=== PATIENT | male | born 1950 | race Caucasian/White ===

== ENCOUNTER 2023-12-30 10:00 | Outpatient (RCR) | payer MEDICARE, SELFPAY ==
--- NOTE | 2023-12-09 07:02 | HP.OTEVAL_ITS ---
Patient's Visit Information Visit Information Visit Information: NICO CARLSON is a 73 year old M, referred to Occupational Therapy by Dr. Mauro Cao MD, with a diagnosis of right MF & RF tendon glides. Date of Evaluation: 12/08/23 Occupational Therapist: Rosalind Durbin, ARTI/Richardson, CHT Subjective Subjective: This 73 year old male was seen for OT eval with dx of other orthopedic aftercare following right MF and RF trigger finger release- pt states he has had injections starting about 2 years ago. Pt states sx 11/25/23 pt under went right MF and RF trigger finger release. Stiches were removed on 12/01/23- pt struggling with swelling limited ROM and use of right UE. pt is right handed. pt states about last /thu. he woke up in AM and his right shoulder pain and this is limiting his use of his right hand. pt states prior to sx he was performing all ADLs and IADLs at IND level. Pain right hand: Current Pain Intensity: 2 Pain Intensity Range: 3 ROM Wrist: right 30/15 left 65/50 PIP: right RF -40/ 40 left 0/110 RF -50/ 60 left 0/100 ROM Comments: pt demo limited ability to form a composite fist by 2.5 Strength Data Processing Mechanic: right NT left 55# Lateral Pinch: right NT left 12# Tripod Pinch: right NT left 14# Strength Comments: will test right wireless manager strength a later date Edema PIP: right IF 9.5 left 8.0 Other: right MCP 22.5cm left 21cm Sensation Sensation Comments: denies Quick DASH-Disab of Arm,Shoulder& Hand Quick DASH Score: 77.2725 Goals Goal:100% adherence to protocol: Yes Comment: Trigger finger guidelines Goal:Daily scar massage when approriate: Yes Goal:ROM equal to unaffected hand: Yes Goal:Data Processing Mechanic/Pinch strength at least 75% of unaffected hand: Yes Goal:No pain with affected hand use: Yes Goal:PIP Circumferences equal to unaffected hand: Yes Goal:Full use of affected hand in daily activities including work: Yes Rehabilitation General Assessment: pt demo with right hand swelling, limited wrist and digit ROM decreasing pts ind. with ADLs and IADLS. Pt would benefit from skilled OT services 2x week for 4 weeks to return pt to his PLOF. Today therapist ed. pt on tendon glide, edema mtg and his POC. pt demo understanding and agrees to POC. Rehabilitation Potential: Good Anticipated Interventions Anticipated Interventions: A/AAROM/PROM, Strengthening, Edema Control, Scar Care, Triggerpoint Release, Desensitization, Sensory Retraining, Modalities, Orthoses, Joint Protection/Energy Conservation, Ergonomic Education, Education re assistive Equipment, Education re Diagnosis and Home Program Visit Plan Frequency: 2-3x /Week Duration: 4-6 Weeks TEXT: Thank you for the opportunity to evaluate your patient. For Medicare and Medicare HMO plans, please review the plan of care and approve it. It will need to be FAXED BACK to us at [phone] for Medicare purposes. Please let me know if there are questions or concerns regarding this plan of care. Physician Signature: Date:
--- NOTE | 2023-12-31 07:36 | OTREVAL_ITS ---
Re-Evaluation Intro: Dr. Mauro Cao MD, It has been my pleasure to treat NICO CARLSON over the last 7 visits for right MF & RF tendon glides. Please see the progress note below for an update on the occupational therapy plan of care! Subjective Subjective: Pt arrived early; states he is doing ok; not having any pain. Pt has appt and would like print out of progress to take with him. Objective Objective/Function: wrist ROM 40/40 MF continues to demo a decrease in ROM limiting full composite fist- Due to a right shoulder impingement shortly after his sx and prior to his therapy pt was limited with progression of his rehab. pt is cont. with AROM, scar mtg and now that he is demo a increase in functional ROM we can increase pt to PRE. Will keep with hand/ forearm as shoulder is still limited. Pt is performing his own Ex. with his shoulder. pt would benefit from further OT services 2x week for next 3-4 weeks to increase strength to return pt to a PLOF. Plan Plan Frequency: 2-3x /Week Duration: 4-6 Weeks Visits in this POC: (No limit on Med Nikky) 4-6 weeks (2-3x week) Plan: if pts shoulder impingement- symptoms/ is mtg. his shoulder IND. but this has affected pts use of Right hand. will imitate light PRE grip assembler for trigger fingers /wrist and forearm to pts limits Goals Goals Patient Goals: Regain Mobility, Regain Strength, Decrease Pain and Use Hand/Wrist/Arm Normally Again Goal:100% adherence to protocol: Yes Goal:Daily scar massage when approriate: Yes Goal:ROM equal to unaffected hand: Yes Goal:Biometric Screener/Pinch strength at least 75% of unaffected hand: Yes Goal:No pain with affected hand use: Yes Goal:PIP Circumferences equal to unaffected hand: Yes Goal:Full use of affected hand in daily activities including work: Yes Anticipated Interventions Anticipated Interventions Anticipated Interventions: A/AAROM/PROM, Strengthening, Edema Control, Scar Care, Triggerpoint Release, Desensitization, Sensory Retraining, Modalities, Orthoses, Joint Protection/Energy Conservation, Ergonomic Education, Education re assistive Equipment, Education re Diagnosis and Home Program Re-Evaluation Ending Re-evaluation ending: Please do not hesitate to contact me at [phone] by phone or if you have questions or concerns regarding this new plan of care! Sincerely, Rosalind Durbin, OTR/L, CHT
--- NOTE | 2024-05-20 08:51 | HP.OTDCNRP_ITS ---
Patient Information Patient Information: NICO CARLSON was seen in my office for initial evaluation on 12/08/23. The following Plan of Care was established for this patient: POC Established Initial Frequency: 2-3x /Week Initial Duration: 4-6 Weeks Plan: if pts shoulder impingement- symptoms/ is mtg. his shoulder IND. but this has affected pts use of Right hand. will imitate light PRE environmental quality analyst for trigger fingers /wrist and forearm to pts limits Anticipated Interventions Anticipated Interventions: A/AAROM/PROM, Strengthening, Edema Control, Scar Care, Triggerpoint Release, Desensitization, Sensory Retraining, Modalities, Orthoses, Joint Protection/Energy Conservation, Ergonomic Education, Education re assistive Equipment, Education re Diagnosis and Home Program Last Seen Last Seen: This patient was last seen in our office 12/30/23. Pertinent comments regarding their Occupational therapy will appear below: pt was seen for OT, last seen on 12/30/23. Pt has not scheduled further apts and due to time lapse in services pt is d/c at this time. At this point I will be discontinuing this patient from occupational therapy. I would be happy to see this patient again in the future if found appropriate by the physician. Thank you! Rosalind Durbin, OTR/L, CHT
== END 2023-12-30 19:00 | disposition home or self-care (01) ==
LOC: OT 10:00
PROVIDERS: PCP Preventive Medicine Occupational Medicine; Referring Provider Orthopaedic Surgery Hand Surgery; Visit Provider Orthopaedic Surgery Hand Surgery
DX: Z47.89 Encounter for other orthopedic aftercare (principal)
CPT/HCPCS: 97035; 97110; 97140; 97166; 97530

== ENCOUNTER 2024-12-26 11:30 | Outpatient (RCR) | payer MEDICARE, SELFPAY ==
--- NOTE | 2024-11-15 15:57 | HP.PTEVAL ---
Patient's Visit Information Visit Information Visit Information: NICO CARLSON is a 74 year old M referred to Physical Therapy by ONEAL HUBBARD with a diagnosis of CERVICAL RADICULOPATHY. Date of Evaluation: 11/15/24 Physical Therapist: Ania Joshi PT, Cert MDT Visit Plan Frequency: 2-3x /Week Duration: 4-6 Weeks Plan: NO NECK MANUAL THERAPY. POSTURE CORRECTION/STRENGTHENING. NECK AND SCAPULAR STABILIZATION AND STRENGTHENING. NECK ROM. TAYLOR UE ROM, STRETCHING AND STRENGTHENING WITH L UE MANUAL INTERVENTIONS NEEDED FOR STRETCHING, PROPER MUSCLE ACTIVATION AND TO AVOID COMPENSATORY MVMTS. HEP INSTRUCTION. HOME ELECTRICAL STIMULATION UNIT INSTRUCTION NEEDED. DRY NEEDLING. Subjective Subjective: Work/Leisure: RETIRED. [employer] AND [employer]. DISABILITIES SERVICES OFFICER FOR 30 YEARS. Present symptoms: LACK OF ROM AND REAL ESTATE VALUER STRENGTH IN L ARM AND HAND. Present since: 07/23/24 Getting Better, Getting Worse or Staying the Same: STAYING THE SAME Pain Scale: N/A Commenced as a result of: NO APPARENT REASON/SOMETHING IN THE NIGHT. Symptoms at onset: NO USE OF THE WHOLE L ARM AND HAND. SWELLING AND HYPERSENSATIVITY OF DISTAL L FOREARM TO HAND X 2 WEEKS THEN IT STARTED RESOLVING ITSELF. OTHER PAST EPISODES USUALLY RESOLVE WITHIN ANOTHER 2 WEEKS BUT THIS ONE HASN'T. Worse: NOTHING Better: NOTHING Disturbed sleep: NO Previous history/Previous treatment: H/O AT LEAST 3 EPISODES IN EA ARM OVER THE LAST 5 TO 6 YEARS. RESOLVE ON THEIR OWN. HEAT AND COLD DO NOT HELP. MORE ACTIVE UNTIL MARCH OF 2024. TREATED BY DR. BHARDWAJ IN PAST AND CURRENT. DR. CHAPPELL PCP AUG 2024. This episode: THIS EPISODE HASN'T RESOLVED ITSELF LIKE THE OTHERS HAVE IN THE PAST. Dizziness: NO Tinnitus: NO Nausea: NO Shortness of Breath: NO Difficulty Swallowing: NO Gait: NORMAL FOR PATIENT - DENIES FALLS - NO AD'S. Accidents: NO Unexplained weight loss: NO Imaging: EMG LAST THURSDAY - ABNORMAL BUT PATIENT HAS NOT BEEN TOLD DX. CERVICAL AND THORACIC MRI'S NORMAL PER PATIENT REPORT. R SHLD X-RAY SHOWING 2011 H/0 L HUMERUS ORIF BUT OTHERWISE NORMAL PER PATIENT REPORT. NO L ELBOW, WRIST OR HAND X-RAYS SINCE JUN 2024 PER PATIENT REPORT. PMH/Recent major surgery: UNREMARKABLE. OTHER: PATIENT REPORTS ROM IN HIS HAND AND WRIST IMPROVED AFTER EMG TEST Thursday11/11/24. Objective Objective: Sitting Posture/Standing Posture: SLOUCHED IN SITTING. FORWARD HEAD. ROUNDED SHOULDERS. Other Observations: THIS PATIENT AMBULATES INDEP'LY INTO PT TODAY LIMPING AND STATING THAT HE SLEPT WRONG AND THE ARCH OF HIS FOOT IS HURTING. Sensory deficit: DECREASED LIGHT TOUCH L WRIST AND HAND INCLUDING FINGERS COMPARED TO R. ROM deficit: R UE WFL. L SHLD AROM 150 DEG, ABD 135 DEG, EXT 55 DEG. WRIST EXT 41 DEG, WRIST FLEX 32 DEG (ELBOW 90 DEG). Motor deficit: PEAK FORCE IN LBS: SHLD FLEX L 15.4, R 32.1 SHLD EXT L 12.9, R 16.2 SHLD ABD L 16.8, 24.0 SHLD ER L 12.0, 18.0 SHLD IR L 14.9, 24.2 ELBOW FLEX L 20.0, 32.4 ELBOW EXT L 20. 0, R 24.3 WRIST EXT L 5.0, R 13.3 REAL ESTATE VALUER L 2 LBS, R 25 LBS TRI POD FINGER PINCH: L 4 LBS, R 6 LBS THUMB PINCH: L 6 LBS, R 12 LBS. Cervical Mvmt Loss: Flex: NIL Pro: NIL Ext: MIN Ret: MOD RSB: MOD LSB: MOD R Rot: MIN L Rot: NIL PATIENT DENIES ANY EFFECT WITH CERVICAL ROM TESTING. Postural strength: FAIR. ABLE TO CORRECT. DOES NOT MAINTAIN. Palpation: NO ACUTE UPPER THORACIC, CERVICAL, UPPER TRAP OR SHLD TENDERNESS. NO L UE TENDERNESS WITH PALPATION. Balance/Special Test Scores Oswestry Neck Score: 4 Goals Goal 1:: INCREASE FUNCTIONAL ROM OF L UE TO IMPROVE ADL FUNCTION Goal Time Frame: 6-8 Weeks Goal 2:: INCREASE FUNCTIONAL STRENGTH OF L UE TO IMPROVE ADL FUNCTION Goal Time Frame: 6-8 Weeks Goal 3:: INDEP HEP Goal Time Frame: 8-12 Weeks Goal 4:: PATIENT WILL BE ABLE TO RETURN TO PLOF BEFORE ONSET OF SYMPTOMS JUN 2024 Goal Time Frame: 8-12 Weeks Rehabilitation Potential Physical Therapy Diagnosis: POSTURAL AND L UE TIGHTNESS AND WEAKNESS WITH L UE ALTERED SENSATION. Rehabilitation Potential: Fair Anticipated Interventions Patient/Client Instruction: Educate patient on: Condition, Plan of Care and Risk Factors For the Purpose of:: To improve self management Therapeutic Exercise to Include: Strength training, Endurance training, Coordination, Postural training, Flexibilty training, Passive ROM, Active ROM and Scapular Strength/Stabilization For the Purpose of:: To increase ROM, To improve muscle performance and motor function, To improve ability to perform ADL's, To improve performance and independence with ADL's, To improve ability of physical actions for home/community/work/leisure, To decrease soft tissue restriction, To increase flexibility/ROM, To improve endurance, To improve self management and To improve ability to perform tasks related to life management Manual Therapy Techniques to Include: Passive ROM and Functional dry needling For the Purpose of:: To decrease soft tissue restriction and To increase flexibility/ROM Text: Thank you for the opportunity to evaluate your patient. For Medicare and Medicare HMO plans, please review the plan of care and approve it. It will need to be FAXED BACK to us at [phone] for Medicare purposes. For Medicare only, by signing this I certify the plan of care. Please let me know if there are questions or concerns regarding this plan of care. Physician Signature: Date:
--- NOTE | 2024-12-26 12:53 | HP.PTDCSUM_ITS ---
Discharge Summary D/C summary: It has been my pleasure to treat NICO CARLSON referred by ONEAL HUBBARD, with the diagnosis of CERVICAL RADICULOPATHY for a total of 10 visit(s). Discharge Date: 12/26/24 Please see the following information for a summary of their discharge status. Subjective Subjective: PATIENT STATES HE FEELS LIKE HE CAN CONTINUE ON HIS OWN AT THIS POINT. HE STATES HIS UE ROM HAS RETURNED 100% AND HIS L SHOULDER AND BICEP STRENGTH HAS RETURNED ABOUT 50% OF THE R BUT HE IS R HANDED AND THE LEFT PROBABLY WASSN'T QUITE STRONG THE RIGHT BEFORE ONSET IN JUN ANYWAY. WRIST STILL FEELS WEAK BUT NOT DROPPING ANYTHING. SAW NEUROLOGIST 12/20/24. BRAIN MRI ORDERED AND PATIENT AWAITING INSURANCE APPROVAL. PATIENTS STATES THE NEUROLOGIST LOOKED AT ALL OF HIS PRIOR TEST RESULTS AND DID NOT COME UP WITH ANY NEW CONCLUSIONS AND SEEMED TO CONCLUDE HIS SYMPTOMS BEING RELATED TO THE DISCS/NERVE ROOTS IN HIS NECK. NECK JUST FEELS TIRED BUT NOT PAINFULL. NECK IS FEELING STRONGER WITH HEP. OVER-ALL PATIENT REPORTS HIS L UE STRENGTH JUST HASN'T FULLY RECOVERED YET AND HE CAN CONTINUE TO WORK ON IT ON HIS OWN. HE STATES YESTERDAY WAS THE FIRST DAY IN A LONG TIME HE FELT LIKE GOING TO THE [employer] TO EXERCISE AND IT WENT PRETTY GOOD. HE STATES HE CAN ALSO GO TO THE [employer]. Overall Improvement % Improvement: 75 Objective Objective/Function: PATIENT WAS SEEN TODAY FOR RE-ASSESSMENT OF PROGRESS TOWARD THE SET PT GOALS AND THE NEED FOR FURTHER PHYSICAL THERAPY VS READINESS FOR DISCHARGE. THIS PATIENT HAS RESPONDED WELL TO PT AND IS NOW INDEP WITH EX. UPON EXAM TODAY: THIS PATIENT AMBULATES INDEP'LY INTO PT TODAY LIMPING AGAIN TODAY ON THE R LE AND STATING THAT HE SLEPT WRONG AGAIN AND HIS 5TH METATARSAL IS HURTING. Sensory deficit: TAYLOR UE LIGHT TOUGH SENSATION GROSSLY INTACT AND SYMMETRICAL. ROM deficit: L SHLD AND ELBOW WFL. WRIST EXT 40 DEG, WRIST FLEX 50 DEG (ELBOW 90 DEG). Motor deficit: PEAK FORCE IN LBS: SHLD FLEX L 28.1, R 32.2 SHLD EXT L 27.9, R 27.1 SHLD ABD L 31.4, R 33.1 SHLD ER L 20.4, R 26.8 SHLD IR L 17.7, R 24.1 ELBOW FLEX L 32.3, R 33.7 ELBOW EXT L 25.5, R 24.4 WRIST EXT L 10.3, R 15.3 SECURITY SYSTEMS MANAGER L 25 LBS, R 27 LBS TRI POD FINGER PINCH: L 10 LBS, R 10 LBS THUMB PINCH: L 10 LBS, R 14 LBS. Cervical Mvmt Loss: Flex: NIL Pro: NIL Ext: MIN Ret: MOD RSB: MOD LSB: MOD R Rot: MIN L Rot: NIL PATIENT DENIES ANY EFFECT WITH CERVICAL ROM TESTING. Postural strength: FAIR. ABLE TO CORRECT. DOES NOT MAINTAIN. Palpation: NO ACUTE UPPER THORACIC, CERVICAL, UPPER TRAP OR SHLD TENDERNESS. NO L UE TENDERNESS WITH PALPATION. Goals Goal 1:: INCREASE FUNCTIONAL ROM OF L UE TO IMPROVE ADL FUNCTION Goal Progress: Goal Met Goal 2:: INCREASE FUNCTIONAL STRENGTH OF L UE TO IMPROVE ADL FUNCTION Goal Progress: Goal Met Goal 3:: INDEP HEP Goal Progress: Goal Met Goal 4:: PATIENT WILL BE ABLE TO RETURN TO PLOF BEFORE ONSET OF SYMPTOMS JUN 2024 Goal Progress: Progressing Plan Plan: D/C TO INDEP EX. PATIENT AGREEABLE. D/C Information d/c sentence: If there are questions or concerns regarding this patient's physical therapy, please feel free to call me at [phone]. Thank you for the referral of this patient. Sincerely, Ania Joshi, PT, Cert MDT Balance/Gait/Functional tests Balance/Special Test Scores Oswestry Neck Score: 0 Improvement % Improvement: 75
== END 2024-12-26 19:00 | disposition home or self-care (01) ==
LOC: PT 11:30
PROVIDERS: PCP Preventive Medicine Occupational Medicine
DX: M54.12 Radiculopathy, cervical region (principal); G56.03 Carpal tunnel syndrome, bilateral upper limbs
CPT/HCPCS: 97110; 97162; 97530